=== PATIENT | male | born 1980 | race Two or more races ===

== ENCOUNTER 2025-04-23 05:07 | Day surgery (SDC) | payer OTHER ==
[2025-04-16 12:33] VITALS: BP 138/76
[~2025-04-23] VITALS: Ht 177.8 cm; Wt 195.0 kg
[~2025-04-23 05:07] MED LIST: FOLIC ACID0.8 M1; HYDROCHLOROTHIA50 MG PO; METHOTREXATE2.5 MG PO
[2025-04-23] MEDS ORDERED: LIDOCAINE HCL 1%/EPINEPHRINE 20ML VIAL IJ ONE (08:00)
[2025-04-23] MEDS ORDERED: DIBUCAINE 30 GM TUBE RECTAL ONE (08:00)
[2025-04-23] MEDS ORDERED: METRONIDAZOLE/SODIUM CHLORIDE 500 MG/100 ML PIGGYBACK IV ONE (08:00)
[2025-04-23] MEDS ORDERED: HEMOSTATIC MATRIX 1 KIT KIT TOP ONE (08:00)
[2025-04-23] MEDS ORDERED: BUPIVACAINE HCL 30 ML VIAL IJ ONE (08:00)
[2025-04-23] MEDS ORDERED: POVIDONE-IODINE 118 ML BOTT TOP ONE (08:00)
[2025-04-23] MEDS ORDERED: CEFTRIAXONE SODIUM 2,000 MG VIAL IV ONE (08:00)
[2025-04-23] MEDS ORDERED: PERCOCET 5-3251 EACH PO (08:18)
[2025-04-23] MEDS ORDERED: RECTICARE30 GM TOP (08:19)
== END 2025-04-23 11:45 | disposition home or self-care (01) ==
LOC: CIR.AMB 05:07
PROVIDERS: ATTEND Surgery
DX: K60.321 Anal fistula, complex, initial (principal); Z88.6 Allergy status to analgesic agent